=== PATIENT | female | born 1945 | race Caucasian/White ===

== ENCOUNTER 2016-09-27 05:12 | Inpatient (IN) | payer BC ==
[2016-09-27] VITALS (19 sets, daily range): BP systolic 140–190; BP diastolic 65–109; PULSE 70–82; RESP 16–18; Ht 162.6 cm; Wt 55.0 kg
[~2016-09-27] VITALS: Ht 162.6 cm; Wt 55.0 kg
[~2016-09-27 05:12] MED LIST: CEFAZOLIN 2 GM/50 ML (PMX) 50 ML IVPB ONE; LACTATED RINGER'S 1,000 ML IV* SCH
[2016-09-27] MEDS ORDERED: D5W-0.45 NACL + KCL 20 MEQ 1,000 ML IV SCH (06:56)
--- NOTE | 2016-09-27 06:56 | HPN ---
Date/Time of Note Date/Time of Note DATE: 09/27/16 TIME: 06:56 Interval H&P Admission Note Pt. seen H&P reviewed: No system changes HANNA ENG MD Sep 27, 2016 06:56
[2016-09-27] MEDS ORDERED: AL HYDROX/MG HYDROX/SIMETH 30 ML CUP PO PRN (07:00)
[2016-09-27] MEDS ORDERED: NALOXONE (0.4 MG/ML) INJ IV PRN (07:00)
[2016-09-27] MEDS ORDERED: ACETAMINOPHEN 325 MG TAB PO PRN (07:00)
[2016-09-27] MEDS ORDERED: DIPHENHYDRAMINE 25 MG CAP PO PRN (07:00)
[2016-09-27] MEDS ORDERED: SUGAMMADEX SODIUM 200 MG/2 ML VIAL IV ONE (07:00)
[2016-09-27] MEDS ORDERED: ONDANSETRON 4 MG INJ IV PRN ×2 (07:00→09:00)
[2016-09-27] MEDS ORDERED: BISACODYL 10 MG SUPP PR PRN (07:00)
[2016-09-27] MEDS ORDERED: HYDROCODONE/APAP (10/325) TAB PO PRN ×2 (07:00)
[2016-09-27] MEDS ORDERED: CEFAZOLIN 1 GM/50 ML (PMX) 50 ML IVPB SCH (07:00)
[2016-09-27] MEDS ORDERED: CEPASTAT LOZENGE MT PRN (07:00)
[2016-09-27] MEDS ORDERED: HYDROmorphONE 1 MG/ML SYG IV PRN (07:00)
[2016-09-27] MEDS ORDERED: CYCLOBENZAPRINE 10 MG TAB PO PRN (07:00)
[2016-09-27] MEDS ORDERED: POLYMYXIN/BACITRACIN 1L IRRIG IRR ONE (07:48)
[2016-09-27] MEDS ORDERED: BUPIVACAINE 0.25%/EPI (SDV) 30 ML INJ INJ ONE (07:48)
[2016-09-27] MEDS ORDERED: THROMBIN 5000 UNIT VIAL TOP ONE (08:09)
[2016-09-27] MEDS ORDERED: MEPERIDINE 25 MG INJ IV PRN (09:00)
[2016-09-27] MEDS ORDERED: DIPHENHYDRAMINE 50 MG INJ IV PRN (09:00)
[2016-09-27] MEDS ORDERED: PROCHLORPERAZINE 10 MG INJ IV PRN (09:00)
[2016-09-27] MEDS ORDERED: HYDROmorphONE (0.2 MG/ML) 10ML SYG IV PRN ×2 (09:00)
[2016-09-27] MEDS ORDERED: DOCUSATE SODIUM 100 MG CAP PO SCH (09:00)
[2016-09-27] MEDS ORDERED: BUPIVACAINE 0.25% (MPF) 30 ML INJ INJ ONE (09:55)
--- NOTE | 2016-09-27 10:09 | OPR ---
Date/Time of Note Date/Time of Note DATE: 09/27/16 TIME: 10:08 Operative Report Preoperative Diagnosis retained painful HW Postoperative Diagnosis retained painful HW Operation/Procedure Performed removal lumbar HW Surgeon: HANNA ENG MD paraprofessional education assistant: HUMA MALCOLM PA-C Anesthesia: general Estimated Blood Loss: 10 - 50 ml's Specimens hw Complications: None HANNA ENG MD Sep 27, 2016 10:09
[2016-09-27] MEDS ORDERED: hydrALAzine 20 MG INJ IV ONE (11:30)
--- NOTE | 2016-09-27 17:00 | RADRPT ---
PROCEDURE: Intraoperative imaging of the lumbar spine with fluoroscopy. CLINICAL INDICATION: Back pain. Intraoperative. TECHNIQUE: 3 images of the lumbar spine were obtained in the operating room with an image intensif ier. No radiologist was in attendance. Fluoroscopy time is 13 seconds. COMPARISON: 01/19/2016 FINDINGS: Images demonstrate removal of the pedicle screws and connecting rods from the lower lumbar spine. IMPRESSION: 1. Intraoperative imaging of the lumbar spine. RPTAT: QQ .Porter Collado MD, MD Date Time Electronically viewed and signed by .Porter Collado MD, MD on 09/27/2016 16:59 .R/
--- NOTE | 2016-09-28 05:42 | OPR ---
DATE OF OPERATION: 09/27/2016 PREOPERATIVE DIAGNOSIS: Retained painful lumbar hardware status post L4-5, L5-S1 fusion. POSTOPERATIVE DIAGNOSIS: Retained painful lumbar hardware status post L4-5, L5-S1 fusion. PROCEDURE: 1. Removal of retained painful hardware. 2. Posterior lateral fusion of L3-4 and L4-5. 3. Use of C-arm fluoroscopy with interpretation without radiologist present. SURGEON: Castro Anthony MD DRILL BIT SHARPENER: Karina Love PA-C NEED FOR INVESTIGATION CLERK: commissary assistant was required for retraction of the neurovascular elements. This could not be done with a pollution control technician. ESTIMATED BLOOD LOSS: 50 mL. DRAINS: None. SPECIMENS: Medical Any Plus hardware was sent to pathology. COMPLICATIONS: None. ANESTHESIOLOGIST: Jerry Elmore MD. ANESTHESIA: General. INDICATION FOR PROCEDURE: This is a 71-year-old female who had previously undergone L3-4 and L4-5 instrumented fusion. Additionally she has had a previous L2-3 decompression and diskectomy. She had pain in the back and diagnostic studies were performed and it appeared that her pain was coming from the retained hardware. As such, the above procedure was recommended. Preoperatively I discussed risks, benefits, alternatives. She understood, wished to proceed. DESCRIPTION OF PROCEDURE: The patient was identified in the preoperative holding area, given Ancef antibiotics in the operating room, where she was successfully placed under general anesthesia. Sequential compressive devices were applied. The patient did not want needles placed for intraoperative monitoring; therefore, we attempted to perform the intraoperative neuro monitoring with just the stickers but we were unable to get nerve signals; therefore, nerve signals were not performed during the surgery. She was placed on the operating room table in prone position on a Royer frame. All bony prominences were well padded. The back was then prepped and draped usual sterile fashion. Using the previous incision I incised the skin after injecting the skin with Marcaine epinephrine. I incised the dorsal fascia and then I dissected out the hardware. The patient had abundant bone growth over the pedicle screws, rods and both crosslinks. I had to chisel away all of the bone in order to visualize the hardware in its entirety. This added at least 1 hour to a standard hardware removal case. Once I had removed all of the overlying bone, I removed the set screws and the crosslink. I then removed both rods. I then removed each of the pedicle screws. I then irrigated the wound and injected with Surgifoam for hemostatic purposes. I then took fiber graft and filled all of the pedicle screws holes and placed this posterior laterally to augment the fusion and completed the posterior lateral fusion at L3-4 and L4-5. Once this was done, I took final images to make sure that there was no retained hardware. Hardware was then sent to pathology. I then closed the fascia with a number 1 Vicryl stitch. I then injected plain Marcaine. I then closed subcutaneous tissue with 2-0 Vicryl stitch, followed by 4-0 Monocryl closure. Dermabond was then applied. The patient was then awakened from anesthesia and taken to recovery in stable condition. Lap, sponge, and instrument counts correct x2. There were no apparent complications during the procedure. The patient will be admitted to the [facility] for routine postoperative care to include pain control, antiemetics, antibiotics and physical therapy. If comfortable she would like to go home later today. Dictated By: Castro Anthony MD /[email or web address]/sasha /Document#: [id number]
--- NOTE | 2016-09-28 12:39 | DS ---
Date/Time of Note Date/Time of Note DATE: 09/28/16 TIME: 12:38 Discharge Summary Admission/Discharge Info Admit Date/Time Sep 27, 2016 at 05:12 Discharge Date/Time Sep 27, 2016 at 14:58 Discharge Diagnosis Status post hardware removal Patient Condition: Good Hospital Course The patient was admitted to the [facility] after undergoing the above procedure. Her hospital course was uncomplicated. By postoperative day 0 she was deemed stable for discharge with follow-up arranged with the undersigned Home Meds No Active Prescriptions or Reported Meds Primary Care Provider Not On Staff Doctor HANNA ENG MD Sep 28, 2016 12:39
[2016-09-28] MEDS ORDERED: SURGIFOAM POWDER 1 GM KIT ONE (18:01)
[2016-09-28] MEDS ORDERED: MIDAZOLAM 1 MG/ML 2 ML INJ ONE (18:01)
[2016-09-28] MEDS ORDERED: FAMOTIDINE 20 MG INJ ONE (18:01)
[2016-09-28] MEDS ORDERED: LIDOCAINE 2% (SDV) 5 ML INJ ONE (18:01)
[2016-09-28] MEDS ORDERED: BUPIVACAINE 0.25% (MPF) 30 ML INJ ONE (18:01)
[2016-09-28] MEDS ORDERED: CEFAZOLIN 1 GM INJ ONE (18:01)
[2016-09-28] MEDS ORDERED: PHENYLephrine (100 MCG/ML) 5ML SYG ONE (18:01)
[2016-09-28] MEDS ORDERED: BUPIVACAINE 0.25%/EPI (SDV) 30 ML INJ ONE (18:01)
[2016-09-28] MEDS ORDERED: THROMBIN 5000 UNIT VIAL ONE (18:01)
[2016-09-28] MEDS ORDERED: POLYMYXIN/BACITRACIN 1L IRRIG ONE (18:01)
[2016-09-28] MEDS ORDERED: PROPOFOL 20 ML ONE (18:01)
[2016-09-28] MEDS ORDERED: ONDANSETRON 4 MG INJ ONE (18:01)
[2016-09-28] MEDS ORDERED: ROCURONIUM 50 MG INJ ONE (18:01)
[2016-09-28] MEDS ORDERED: DEXAMETHASONE 4 MG/ML 1 ML INJ ONE (18:01)
[2016-09-28] MEDS ORDERED: hydrALAzine 20 MG INJ ONE (18:02)
== END 2016-09-27 14:58 | disposition home or self-care (01) | DRG 460 ==
LOC: REC 05:12 → MS1 11:42
PROVIDERS: ADMIT Specialist; ATTEND Specialist
PROC: 0SG10KJ Fusion of 2 or more Lumbar Vertebral Joints with Nonautologous Tissue Substitute, Posterior Approach, Anterior Column, Open Approach (ICD-10-PCS; 2016-09-27)
PROC: 0SP004Z Removal of Internal Fixation Device from Lumbar Vertebral Joint, Open Approach (ICD-10-PCS; principal; 2016-09-27 07:00)
DX: T84.296A Other mechanical complication of internal fixation device of vertebrae, initial encounter (principal); Y79.8 Miscellaneous orthopedic devices associated with adverse incidents, not elsewhere classified; Y92.009 Unspecified place in unspecified non-institutional (private) residence as the place of occurrence of the external cause
CPT/HCPCS: 72100; 86999; 88300; 88331; 97161; C1713; J0360; J0690; J1100; J2250; J2370; J2405; J3010